=== PATIENT | female | born 1970 | race Caucasian/White ===

== ENCOUNTER 2020-11-19 07:40 | Emergency (ER) | payer OTHER ==
[~2020-11-19] VITALS: Ht 152.4 cm; Wt 507.1 kg
[~2020-11-19 07:40] MED LIST: AMBIEN5 MG PO; TRAZODONE HCL100 MG PO
[2020-11-19] MEDS ORDERED: ATORVASTATIN CA10 MG (08:32)
[2020-11-19] MEDS ORDERED: BUSPIRONE HCL7.5 MG (08:32)
[2020-11-19] MEDS ORDERED: CLONAZEPAM0.5 MG (08:32)
== END 2020-11-19 12:28 | disposition home or self-care (01) ==
LOC: ER 07:40
DX: B34.9 Viral infection, unspecified (principal)

== ENCOUNTER 2023-02-11 11:08 | Emergency (ER) | payer OTHER ==
[~2023-02-11] VITALS: Ht 152.4 cm; Wt 51.7 kg
[~2023-02-11 11:08] MED LIST changes: +ATORVASTATIN CA10 MG; +BUSPIRONE HCL7.5 MG; +CLONAZEPAM0.5 MG
== END 2023-02-11 15:26 | disposition home or self-care (01) ==
LOC: ER 11:08
DX: K29.60 Other gastritis without bleeding (principal); N39.0 Urinary tract infection, site not specified

== ENCOUNTER 2024-12-18 09:25 | Emergency (ER) | payer OTHER ==
[~2024-12-18] VITALS: Ht 162.6 cm; Wt 55.3 kg
[2024-12-18 11:21] LABS: HEMATOCRIT 46.1 % (36.0-45.00); HEMOGLOBIN 15.8 g/dL (12.0-15.00); MEAN CELL VOLUME 89.2 fL (80.00-100.00); MEAN CORPUSCULAR HEMOGLOBIN 30.6 pg (27.00-32.0); MEAN CORPUSCULAR HGB CONC 34.3 g/dl (32.0-36.0); PLATELET COUNT 225 K/uL (150-450); RED BLOOD COUNT 5.17 M/uL (4.00-6.00); RED CELL DISTRIBUTION WIDTH 12.8 % (11.5-14.5)
[2024-12-18 11:48] LABS: COVID-19 AG NEGATIVE (NEGATIVE); INFLUENZA A AG NEGATIVE (NEGATIVE)
== END 2024-12-18 12:21 | disposition home or self-care (01) ==
LOC: ER 09:26
PROVIDERS: General Practice
DX: J06.9 Acute upper respiratory infection, unspecified (principal); Z20.822 Contact with and (suspected) exposure to COVID-19